=== PATIENT | female | born 1935 | race African-American/Black ===

== ENCOUNTER 2024-05-09 13:36 | Outpatient (CLI) | payer OTHER, MEDICAID | END 2024-05-09 13:37 | disposition home or self-care (01) | LOC: CT 13:36 | PROVIDERS: ATTEND Internal Medicine | DX: R10.84 Generalized abdominal pain (principal); I51.7 Cardiomegaly; J90 Pleural effusion, not elsewhere classified; E87.70 Fluid overload, unspecified | CPT/HCPCS: 74176 ==

== ENCOUNTER 2024-05-29 00:02 | Emergency (ER) | payer MEDICARE, OTHER ==
[2024-05-29] MEDS ORDERED: Morphine 2 MG/ML VIAL ONE (00:40)
[2024-05-29 01:02] LABS: #Basophils 0.06 10x3/uL (0.0-0.2); %Basophils 0.8 % (0.0-1.0); %Eosinophils 1.7 % (0.0-10.0); %Lymphocytes 18.8 % (21.0-51.0); %Monocytes 9.4 % (0.0-10.0); Hematocrit 34.9 % (36.0-47.0); Hemoglobin 11.1 g/dL (12.0-16.0); Mean Corpuscular HGB CONC 31.8 g/dL (32.0-36.0); Mean Corpuscular Hemoglobin 26.7 pg (27.0-31.0); Mean Corpuscular Volume 83.9 fL (78.0-98.0); Mean Platelet Volume 10.1 fL (7.4-10.4); Platelet Count 202 10x3/uL (130-400); Red Blood Cell (RBC) Count 4.16 mill/uL (4.20-5.40)
[2024-05-29 01:17] LABS: ALT (SGPT) 12 U/L (8-55); AST (SGOT) 17 U/L (5-34); Albumin 3.9 g/dL (3.4-4.8); Alkaline Phosphatase 104 U/L (40-110); Anion Gap 17 mmol/L (10-20); BUN (Urea Nitrogen) 17 mg/dL (9.8-20.1); Bilirubin, Total 0.7 mg/dL (0.2-1.2); Calc. Creatinine Clearance 0 mL/min (70-130); Calcium 9.8 mg/dL (7.8-10.44); Carbon Dioxide 21 mmol/L (23-31); Chloride 105 mmol/L (98-107); Estimated GFR 26; Globulin 3.5 g/dL (2.4-3.5); Glucose 102 mg/dL (83-110); Lipase 11 U/L (8-78); Potassium 3.9 mmol/L (3.5-5.1); Protein, Total 7.4 g/dL (5.8-8.1); Sodium 139 mmol/L (136-145)
== END 2024-05-29 04:19 | disposition home or self-care (01) ==
LOC: ERS 00:02
DX: R10.32 Left lower quadrant pain (principal); I11.0 Hypertensive heart disease with heart failure; I50.9 Heart failure, unspecified; I25.2 Old myocardial infarction; E10.9 Type 1 diabetes mellitus without complications; J44.9 Chronic obstructive pulmonary disease, unspecified; I48.91 Unspecified atrial fibrillation; Z86.73 Personal history of transient ischemic attack (TIA), and cerebral infarction without residual deficits
CPT/HCPCS: 74176; 80053; 83690; 85025; 96361; 96374; 99284; J2272; 36415

== ENCOUNTER 2024-07-16 15:10 | Outpatient (CLI) | payer OTHER | END 2024-07-16 15:11 | disposition home or self-care (01) | LOC: BICRAD 15:10 | PROVIDERS: ATTEND Physician Assistant Medical | DX: K59.00 Constipation, unspecified (principal); R10.10 Upper abdominal pain, unspecified; K62.5 Hemorrhage of anus and rectum; R11.0 Nausea; R63.4 Abnormal weight loss | CPT/HCPCS: 74019 ==

== ENCOUNTER 2024-07-24 07:26 | Outpatient (CLI) | payer OTHER | END 2024-07-24 07:27 | disposition home or self-care (01) | LOC: ULT 07:26 | PROVIDERS: ATTEND Physician Assistant Medical | DX: R10.10 Upper abdominal pain, unspecified (principal); K59.00 Constipation, unspecified; K62.5 Hemorrhage of anus and rectum; R11.0 Nausea; R63.4 Abnormal weight loss | CPT/HCPCS: 76700 ==

== ENCOUNTER 2024-08-01 11:41 | Inpatient (IN) | payer OTHER ==
[2024-08-01 13:15] LABS: #Basophils Less than 0.03 10x3/uL (0.0-0.2); %Basophils 0.2 % (0.0-1.0); %Eosinophils 1.3 % (0.0-10.0); %Lymphocytes 10.4 % (21.0-51.0); %Monocytes 8.2 % (0.0-10.0); %Neutrophils 79.5 % (42.0-75.0); Hematocrit 29.3 % (36.0-47.0); Hemoglobin 9.3 g/dL (12.0-16.0); Mean Corpuscular HGB CONC 31.7 g/dL (32.0-36.0); Mean Corpuscular Hemoglobin 25.8 pg (27.0-31.0); Mean Corpuscular Volume 81.4 fL (78.0-98.0); Mean Platelet Volume 9.7 fL (7.4-10.4); Platelet Count 184 10x3/uL (130-400); RBC Distribution Width 21.4 % (11.5-14.5)
[2024-08-01 13:39] LABS: ALT (SGPT) 15 U/L (Less than 34); AST (SGOT) 22 U/L (11-34); Albumin 3.6 g/dL (3.1-4.5); Alkaline Phosphatase 138 U/L (40-110); Anion Gap 13 mmol/L (10-20); BUN (Urea Nitrogen) 28 mg/dL (9.8-20.1); Bilirubin, Total 0.9 mg/dL (0.3-1.2); Calc. Creatinine Clearance 0 mL/min (70-130); Calcium 9.4 mg/dL (7.8-10.44); Carbon Dioxide 22 mmol/L (23-31); Chloride 106 mmol/L (98-107); Estimated GFR 19; Globulin 3.7 g/dL (2.4-3.5); Glucose 101 mg/dL (83-110); Lipase 8 U/L (8-78); Potassium 4.7 mmol/L (3.5-5.1); Protein, Total 7.3 g/dL (5.8-8.1); Sodium 136 mmol/L (136-145)
[2024-08-01] MEDS ORDERED: Aspirin Chewable 81 MG TAB ONE (14:56)
[2024-08-01] MEDS ORDERED: Nitroglycerin 2% Ointment 1 INCH/1 GM Packet ONE (14:56)
[2024-08-01] MEDS ORDERED: Furosemide 40 MG (4 mL) VIAL ONE (14:56)
[2024-08-01] MEDS ORDERED: Albuterol 2.5 MG (3 mL) NEB NEB PRN (17:04)
[2024-08-01] MEDS ORDERED: Nitroglycerin 0.4 MG TAB (25 Tab Bottle) SL PRN (17:04)
[2024-08-01 17:15] LABS: Troponin I 0.051 ng/mL (< 0.028)
[2024-08-01] MEDS ORDERED: Dextrose 5% in Water 1,000 ML IV PRN (18:36)
[2024-08-01] MEDS ORDERED: Insulin Lispro 100 UNIT/ML 10 ML VIAL SC PRN ×2 (18:36)
[2024-08-01] MEDS ORDERED: Dextrose 50% Abboject 50 ML SYRINGE SLOW IVP PRN (18:36)
[2024-08-01] MEDS ORDERED: Glucagon 1 MG/ML KIT IM PRN (18:36)
[2024-08-01] MEDS ORDERED: Ondansetron PF 4 MG/2 ML Vial IVP PRN (18:36)
[2024-08-01] MEDS ORDERED: Acetaminophen 650 MG Suppository PR PRN (18:36)
[2024-08-01] MEDS ORDERED: Ondansetron ODT 4 MG TAB PO PRN (18:36)
[2024-08-01 18:47] VITALS: BMI 31.4
[2024-08-01] MEDS: Mometasone 200 MCG/Formoterol 5 MCG 120 PUFF INHALER INH SCH (19:07)
[2024-08-01 19:51] LABS: Troponin I 0.057 ng/mL (< 0.028)
[2024-08-01] MEDS: Carvedilol 6.25 MG TAB PO SCH (21:01)
[2024-08-01] MEDS: Apixaban 2.5 MG TAB PO SCH (21:01)
[2024-08-01] MEDS: QUEtiapine 25 MG TAB PO SCH (21:02)
[2024-08-01] MEDS: Gabapentin 300 MG CAP PO SCH (21:02)
[2024-08-01] MEDS: Senokot S 8.6-50 MG TAB PO SCH (21:02)
[2024-08-02 05:57] LABS: #Basophils 0.03 10x3/uL (0.0-0.2); %Basophils 0.5 % (0.0-1.0); %Eosinophils 2.1 % (0.0-10.0); %Monocytes 11.2 % (0.0-10.0); %Neutrophils 63.7 % (42.0-75.0); Hematocrit 27.1 % (36.0-47.0); Hemoglobin 8.4 g/dL (12.0-16.0); Mean Corpuscular Hemoglobin 25.1 pg (27.0-31.0); Mean Corpuscular Volume 81.1 fL (78.0-98.0); Mean Platelet Volume 10.2 fL (7.4-10.4); Platelet Count 185 10x3/uL (130-400); RBC Distribution Width 21.9 % (11.5-14.5); Red Blood Cell (RBC) Count 3.34 mill/uL (4.20-5.40)
[2024-08-02 06:23] LABS: Anion Gap 13 mmol/L (10-20); BUN (Urea Nitrogen) 27 mg/dL (9.8-20.1); Calc. Creatinine Clearance 20 mL/min (70-130); Carbon Dioxide 20 mmol/L (23-31); Chloride 106 mmol/L (98-107); Estimated GFR 17; Glucose 89 mg/dL (83-110); Potassium 4.4 mmol/L (3.5-5.1); Sodium 135 mmol/L (136-145)
[2024-08-02 06:36] LABS: Calcium 8.9 mg/dL (7.8-10.44)
[2024-08-02] MEDS ORDERED: Sertraline 25 MG TAB PO SCH (09:00)
[2024-08-02] MEDS: Potassium Chloride 20 MEQ TAB PO SCH (09:08)
[2024-08-02] MEDS: Dapagliflozin Propanediol 10 MG TAB PO SCH (09:10)
[2024-08-02] MEDS: Furosemide 40 MG (4 mL) VIAL SLOW IVP SCH (09:11)
[2024-08-02] MEDS: Folic Acid/Vit B Comp W-C PO SCH (09:11)
[2024-08-02] MEDS: Pantoprazole 40 MG DR.TAB PO SCH (09:12)
[2024-08-02] MEDS: Montelukast Sodium 10 mg Tablet PO SCH (09:12)
[2024-08-02] MEDS: Polyethylene Glycol 3350 17 GM Packet PO SCH (09:12)
[2024-08-02 12:37] VITALS: BMI 31.2
[2024-08-02] MEDS: Lactulose 20 GM (30 mL) UDCUP PO SCH (15:48)
[2024-08-03 05:45] LABS: Anion Gap 13 mmol/L (10-20); BUN (Urea Nitrogen) 33 mg/dL (9.8-20.1); Calc. Creatinine Clearance 21 mL/min (70-130); Calcium 9.1 mg/dL (7.8-10.44); Carbon Dioxide 22 mmol/L (23-31); Chloride 107 mmol/L (98-107); Estimated GFR 19; Glucose 87 mg/dL (83-110); Magnesium 2.1 mg/dL (1.6-2.6); Potassium 4.7 mmol/L (3.5-5.1); Sodium 137 mmol/L (136-145)
[2024-08-03] MEDS: Acetaminophen 325 MG TAB PO PRN (10:07)
[2024-08-04] MEDS: HYDROcodone/Acetaminophen 5/325 mg Tablet PO PRN (00:51)
[2024-08-04 06:34] LABS: Anion Gap 12 mmol/L (10-20); BUN (Urea Nitrogen) 30 mg/dL (9.8-20.1); Calc. Creatinine Clearance 25 mL/min (70-130); Carbon Dioxide 23 mmol/L (23-31); Chloride 107 mmol/L (98-107); Estimated GFR 23; Glucose 91 mg/dL (83-110); Potassium 4.1 mmol/L (3.5-5.1); Sodium 138 mmol/L (136-145)
[2024-08-04] MEDS: Furosemide 40 MG TAB PO SCH (09:38)
[2024-08-04 15:41] VITALS: BP 133/73; TEMP 98.4
== END 2024-08-04 19:05 | disposition hospice, home (50) | DRG 291 ==
LOC: ERS 11:41 → 2NO 15:59 → OBSVTOIN 08-02 13:44
PROVIDERS: ADMIT Student in an Organized Health Care Education/Training Program; ATTEND Family Medicine
DX: I13.0 Hypertensive heart and chronic kidney disease with heart failure and stage 1 through stage 4 chronic kidney disease, or unspecified chronic kidney disease (principal); I50.43 Acute on chronic combined systolic (congestive) and diastolic (congestive) heart failure; N17.9 Acute kidney failure, unspecified; E78.5 Hyperlipidemia, unspecified; E11.22 Type 2 diabetes mellitus with diabetic chronic kidney disease; Z51.5 Encounter for palliative care; Z66 Do not resuscitate; N18.30 Chronic kidney disease, stage 3 unspecified; D63.8 Anemia in other chronic diseases classified elsewhere; I48.0 Paroxysmal atrial fibrillation; J44.9 Chronic obstructive pulmonary disease, unspecified; K21.9 Gastro-esophageal reflux disease without esophagitis; F03.A0 Unspecified dementia, mild, without behavioral disturbance, psychotic disturbance, mood disturbance, and anxiety; Z95.0 Presence of cardiac pacemaker; Z98.890 Other specified postprocedural states; Z88.5 Allergy status to narcotic agent; Z91.040 Latex allergy status; Z90.49 Acquired absence of other specified parts of digestive tract; Z90.710 Acquired absence of both cervix and uterus; K59.09 Other constipation; G47.33 Obstructive sleep apnea (adult) (pediatric); R53.81 Other malaise
CPT/HCPCS: 36415; 36416; 71045; 74176; 80048; 80053; 83690; 83735; 83880; 84484; 85025; 93005; 94664; 94760; 96374; 96376; G0378; J1940